=== PATIENT | female | born 1975 | race African-American/Black ===

== ENCOUNTER 2016-10-21 11:26 | Emergency (ER) | payer OTHER ==
--- NOTE | ~2016-10-21 | CT2 ---
[facility] A Service of [facility] RADIOLOGY TEXT RESULTS PATIENT: RUSTAM CRUZ LOCATION: SED : 77 UNIT #: [id number] AGE: [address]: Michelle Ross MD SEX: F ORDER DR: [id number] [address] [address] [id number] MR#: [id number] Acc #: [id number] NAME: RUSTAM CRUZ : 1975 SEX: F STUDY DATE/TIME: 10/21/2016 15:03 UNIT: SED ROOM: STUDY DESCRIPTION: CT Abd and Pelv W Cont Attending Physician: Michelle Ross M.D. Ordering Physician: Michelle Ross M.D. Primary Care Physician: Jo Up M.D. MEDICAL IMAGING REPORT This report is preliminary unless electronic signature is present. EXAM Abdomen and pelvis CT with contrast 10/21/2016 INDICATIONS Abdominal seroma drain inserted 09/30/2016 now complains of pain and drainage from the site. Hypertension. No history of malignancy. Status post cholecystectomy and hernia repair procedures. TECHNIQUE Contrast enhanced CT of the abdomen and pelvis was performed and compared with 11/29/2015. This CT exam was performed with one or more of the following radiation dose reduction techniques: automatic control, adjustment of mA and/or kV according to patient size, and iterative reconstruction. FINDINGS CT ABDOMEN: Included lung bases are clear. No effusion or pericardial effusion aorta unremarkable. The gallbladder is surgically absent. Spleen and right adrenal gland are normal. Faint nodularity of the left adrenal gland unchanged. Pancreas unremarkable and the liver is within normal limits. Tiny nonobstructing stone in the lower pole right kidney. Kidneys are otherwise unremarkable. CT PELVIS: Bladder unremarkable. No drainable fluid collection in the pelvis or adnexal mass. Follicles are present in both ovaries. Bowel demonstrates no obstruction or focal inflammatory change. Appendix not identified but no secondary sign of appendicitis. Inguinal canals are unremarkable. There is redemonstration of prior anterior abdominal wall hernia repair [facility] A Service of [facility] RADIOLOGY TEXT RESULTS PATIENT: RUSTAM CRUZ [id number] [birth year] UNIT #: [id number] AGE: [address]: Michelle Ross MD SEX: F ORDER DR: procedure with probable mesh material. There has been interval placement of a radiopaque drain into a multiloculated fluid collection intimately associated with the presumed mesh repair site in the anterior abdominal wall and subcutaneous fat. Maximum diameter of the fluid collection on today's examination is about 13.0 x 8.8 x 12.6 cm. This is smaller than on the prior study. The collection contains no distinct air within it to suggest infection but CT cannot distinguish between infected and noninfected fluid. The drainage catheter is situated along the right lateral margin of the fluid collection and there is stranding adjacent to the catheter. Residual anterior abdominal wall hernia or laxity of the anterior abdominal wall interposed between the rectus musculature. There is no evidence of free air. There are small bowel loops and a short segment of the colon extending into the mouth of the recurrent hernia/area of abdominal wall laxity. No suspicious bone lesion. IMPRESSION 1. There is a fluid collection intimately associated with the prior area of hernia repair and probable mesh material. The fluid collection is smaller than on the comparison study from November of 2015 now measuring up to 13 x 12.5 cm maximum diameter and a drainage catheter is situated within the right lateral portion of the multilocular cystic fluid collection. No distinct air within the collection to suggest abscess at this time but CT cannot distinguish between infected and noninfected fluid. 2. There is laxity of the anterior abdominal wall or a recurrent wide-mouthed hernia at the hernia repair site. This contains loops of small bowel and to a lesser extent large bowel without complicating features. No bowel obstruction or free air. 3. Incidental nonobstructing right renal stone. 4. Status post cholecystectomy. 5. Appendix not identified but no secondary sign of appendicitis. 6. Not mentioned above there is a second hernia repair site more inferiorly in the low abdomen/pelvis separate from the more superior hernia repair site where the fluid collection is centered. Dictated by... Ismael Vazquez M.D. THIS IS AN ELECTRONICALLY VERIFIED REPORT Ismael Vazquez M.D. at 10/22/2016 6:38 AM MARIAH/rnr TD: 10/21/2016 19:14 JOB #: [id number] MEDICAL IMAGING REPORT [facility] A Service of [facility] RADIOLOGY TEXT RESULTS PATIENT: RUSTAM CRUZ LOCATION: [facility] : [birth year] UNIT #: [id number] AGE: [address]: Michelle Ross MD SEX: F ORDER DR: Page 1 of 1
[~2016-10-21 11:26] MED LIST: AMOXICILLIN500 M1 PO; BENZONATATE PO; FLEXERIL10 MG PO; IBUPROFEN800 MG; IRON1 TAB PO; LISINOPRIL5 MG PO; NAPROSYN500 MG PO; NO MEDICATIONS; NORCO 5/325 TAB1 TAB PO; ORUDIS75 M1 PO; PRINIVIL5 MG PO; ROBAXIN500 MG PO; TESSALON200 MG; TESSALON200 MG PO; TRAMADOL HCL50 M1 PO; TYLENOL #3 PO; TYLOX 5/500 CAP1 CAP PO; VOLTAREN75 MG PO; ZITHROMAX; [UNRECOGNIZED DRUG - OTHER] PO
[2016-10-21] MEDS ORDERED: HYDROCHLOROTHIA25 MG (11:43)
[2016-10-21] MEDS ORDERED: VITAMIN D 22000 UNIT (11:43)
[2016-10-21 13:12] LABS: BASOPHIL# 0.1 X10e3 (0-0.3); BASOPHIL% 0.8 % (0-2.5); EOSINOPHIL# 0.1 X10e3 (0-0.7); EOSINOPHIL% 1.5 % (0.0-7.0); HEMATOCRIT 32.5 % (35.0-45.0); HEMOGLOBIN 10.2 gm/dL (12.0-16.0); LYMPHOCYTE# 1.2 X10e3 (1.0-3.5); LYMPHOCYTE% 18.2 % (17.0-45.0); MEAN CELL VOLUME 66.7 FL (83-96); MEAN CORPUSCULAR HEMOGLOBIN 20.8 PG (28-34); MEAN CORPUSCULAR HGB CONC 31.3 g/dL (30-36); MEAN PLATELET VOLUME 6.7 FL (6.5-11.5); MONOCYTE# 0.7 X10e3 (0-1.0); MONOCYTE% 10.4 % (3.0-12.0); NEUTROPHIL# 4.5 X10e3 (1.5-7.1); NEUTROPHIL% 69.1 % (40-75); PLATELET COUNT 294 X10e3 (140-420); RED BLOOD COUNT 4.87 X10e (3.90-5.30); RED CELL DISTRIBUTION WIDTH 18.7 % (11.0-15.5); WHITE BLOOD COUNT 6.5 X10e3 (4.0-10.5)
[2016-10-21 13:51] LABS: DIFF IND NO
[2016-10-21 13:55] LABS: ALBUMIN SERUM 3.8 g/dL (3.5-5.0); BILIRUBIN,TOTAL 0.2 mg/dL (0.2-2.0); BUN/CREATININE RATIO 18.33; CREATININE SERUM 0.6 mg/dL (0.6-1.4); GLOM FILT RATE Estimated 132.1 mL/min (>60); POTASSIUM 3.8 mmol/L (3.5-5.1); PROTEIN TOTAL SERUM 7.6 g/dL (6.0-8.3)
== END 2016-10-21 16:49 | disposition home or self-care (01) ==
LOC: SED 11:26
PROVIDERS: Emergency Medicine
DX: L76.33 Postprocedural seroma of skin and subcutaneous tissue following a dermatologic procedure (principal); I10 Essential (primary) hypertension; F17.200 Nicotine dependence, unspecified, uncomplicated
CPT/HCPCS: 36415; 74177; 80053; 84702; 85025; 96374; 96375; 99284; J2270; J2405; Q9967